=== PATIENT | female | born 1975 | race Two or more races ===

== ENCOUNTER 2020-11-01 21:59 | Inpatient (IN) | payer OTHER ==
[~2020-11-01] VITALS: Ht 154.9 cm; Wt 90.9 kg
[~2020-11-01 21:59] MED LIST: CEPH500C3 PO; DSS100 PO; FERR-89 PO; HYDR-4723 PO
[2020-11-01 22:27] LABS: BASOPHILS % (AUTO) 0.2 % (0.0-2.0); EOSINOPHILS % (AUTO) 0.6 % (1.0-6.0); HEMATOCRIT 25.6 % (36-46); HEMOGLOBIN 7.5 g/dL (12.0-16.0); LYMPHOCYTES # (AUTO) 2.8 K/uL (1.0-4.8); LYMPHOCYTES % (AUTO) 33.4 % (22.0-44.0); MEAN CORPUSCULAR HEMOGLOBIN 18.9 pg (26.0-34.0); MEAN CORPUSCULAR HGB CONC 29.3 G/dL (31.0-37.0); MEAN CORPUSCULAR VOLUME 65 fL (80-100); MONOCYTES # (AUTO) 0.7 K/uL (0.1-1.0); MONOCYTES % (AUTO) 8.3 % (2.0-9.0); NEUTROPHILS # (AUTO) 4.8 K/uL (1.8-7.7); NEUTROPHILS % (AUTO) 57.5 % (40.0-70.0); PLATELET COUNT (AUTO) 266 K/uL (150-450); RED BLOOD CELL COUNT(AUTO) 3.97 MIL/uL (4.00-5.20); RED CELL DISTRIBUTION WIDTH 17.9 % (11.5-14.5)
[2020-11-01 22:39] LABS: ANION GAP 7 mmol/L (8-16); CALCIUM, TOTAL 8.8 mg/dL (8.8-10.5); CARBON DIOXIDE 26 mmol/L (22-29); CHLORIDE 104 mmol/L (98-107); CREATININE 0.65 mg/dL (0.60-1.30); GLOMERULAR FILTR. RATE CALC > 60 mL/min (>60); POTASSIUM 3.6 mmol/L (3.5-5.1); SODIUM SERUM 137 mmol/L (136-145); UREA NITROGEN, BLOOD 12 mg/dL (7-18)
[2020-11-01 22:45] LABS: ALANINE AMINOTRANSFERASE 20 U/L (12-78); ALBUMIN 3.8 g/dL (3.4-5.0); ALKALINE PHOSPHATASE 71 U/L (46-116); ASPARTATE AMINOTRANSFERASE 13 U/L (15-37); BILIRUBIN,TOTAL 0.5 mg/dL (0.1-1.0); GLUCOSE,RANDOM 105 mg/dL (70-110); TOTAL PROTEIN, SERUM 7.2 g/dL (6.4-8.2)
[2020-11-01 22:50] LABS: B-TYPE NATRIURETIC PEPTIDE 110 pg/mL (0-100)
[2020-11-02] VITALS (13 sets, daily range): BP systolic 113–134; BP diastolic 60–90
[2020-11-02] MEDS ORDERED: ACETAMINOPHEN 325 MG TABLET PO PRN (01:45)
[2020-11-02] MEDS ORDERED: ONDANSETRON HCL 4 MG/2 ML VIAL IVP PRN (01:45)
[2020-11-02] MEDS ORDERED: 0.9% SODIUM CHLORIDE 10 ML SYRINGE IVP PRN (01:45)
[2020-11-02 09:37] LABS: COVID AG,FIA SOURCE NASOPHARYNGEAL
[2020-11-02] MEDS ORDERED: SODIUM CHLORIDE 0.9% 500 ML IV ONE (16:22)
[2020-11-03 00:26] VITALS: BP 123/67
[2020-11-03 04:05] VITALS: BP 129/67
[2020-11-03 06:13] LABS: BASOPHILS % (AUTO) 0.2 % (0.0-2.0); EOSINOPHILS % (AUTO) 0.7 % (1.0-6.0); HEMATOCRIT 30.4 % (36-46); HEMOGLOBIN 9.2 g/dL (12.0-16.0); LYMPHOCYTES # (AUTO) 1.7 K/uL (1.0-4.8); LYMPHOCYTES % (AUTO) 22.4 % (22.0-44.0); MEAN CORPUSCULAR HEMOGLOBIN 20.6 pg (26.0-34.0); MEAN CORPUSCULAR HGB CONC 30.2 G/dL (31.0-37.0); MEAN CORPUSCULAR VOLUME 68 fL (80-100); MONOCYTES # (AUTO) 0.6 K/uL (0.1-1.0); MONOCYTES % (AUTO) 8.6 % (2.0-9.0); NEUTROPHILS # (AUTO) 5.1 K/uL (1.8-7.7); NEUTROPHILS % (AUTO) 68.1 % (40.0-70.0); PLATELET COUNT (AUTO) 223 K/uL (150-450); RED BLOOD CELL COUNT(AUTO) 4.46 MIL/uL (4.00-5.20); RED CELL DISTRIBUTION WIDTH 21.4 % (11.5-14.5)
[2020-11-03 07:58] VITALS: BP 116/58
== END 2020-11-03 11:00 | disposition home or self-care (01) | DRG 663 ==
LOC: EMS 21:59 → 6N 11-02 10:59
PROVIDERS: ADMIT Internal Medicine; ATTEND Internal Medicine
PROC: 30233N1 Transfusion of Nonautologous Red Blood Cells into Peripheral Vein, Percutaneous Approach (ICD-10-PCS; principal; 2020-11-02)
DX: D50.9 Iron deficiency anemia, unspecified (principal); Z20.822 Contact with and (suspected) exposure to COVID-19
CPT/HCPCS: 80053; 83880; 84484; 85025; 86850; 86870; 86900; 86901; 86922; 93005; 99285; J7040; P9016

== ENCOUNTER 2021-08-19 12:28 | Emergency (ER) | payer OTHER ==
[~2021-08-19] VITALS: Ht 162.6 cm; Wt 100.0 kg
[2021-08-19] MEDS ORDERED: ACETAMINOPHEN 500 MG TABLET PO ONE (13:30)
[2021-08-19 13:44] LABS: BASOPHILS % (AUTO) 0.2 % (0.0-2.0); EOSINOPHILS % (AUTO) 0.7 % (1.0-6.0); HEMATOCRIT 29.6 % (36-46); HEMOGLOBIN 9.4 g/dL (12.0-16.0); LYMPHOCYTES # (AUTO) 1.9 K/uL (1.0-4.8); LYMPHOCYTES % (AUTO) 20.3 % (22.0-44.0); MEAN CORPUSCULAR HEMOGLOBIN 24.3 pg (26.0-34.0); MEAN CORPUSCULAR HGB CONC 31.7 G/dL (31.0-37.0); MEAN CORPUSCULAR VOLUME 76 fL (80-100); MONOCYTES # (AUTO) 0.8 K/uL (0.1-1.0); MONOCYTES % (AUTO) 8.6 % (2.0-9.0); NEUTROPHILS # (AUTO) 6.4 K/uL (1.8-7.7); NEUTROPHILS % (AUTO) 70.2 % (40.0-70.0); PLATELET COUNT (AUTO) 316 K/uL (150-450); RED BLOOD CELL COUNT(AUTO) 3.87 MIL/uL (4.00-5.20); RED CELL DISTRIBUTION WIDTH 16.4 % (11.5-14.5)
[2021-08-19 13:55] LABS: ANION GAP 10 mmol/L (8-16); CALCIUM, TOTAL 8.9 mg/dL (8.8-10.5); CARBON DIOXIDE 30 mmol/L (22-29); CHLORIDE 103 mmol/L (98-107); GLOMERULAR FILTR. RATE CALC > 60 mL/min (>60); GLUCOSE,RANDOM 84 mg/dL (70-110); POTASSIUM 4.2 mmol/L (3.5-5.1); SODIUM SERUM 143 mmol/L (136-145); UREA NITROGEN, BLOOD 10 mg/dL (7-18)
[2021-08-19 14:08] LABS: ALANINE AMINOTRANSFERASE 19 U/L (12-78); ALBUMIN 3.7 g/dL (3.4-5.0); ALKALINE PHOSPHATASE 81 U/L (46-116); ASPARTATE AMINOTRANSFERASE 14 U/L (15-37); BILIRUBIN,TOTAL 0.3 mg/dL (0.1-1.0); HCG,QUANTITATIVE < 1 mIU/mL (0-6); TOTAL PROTEIN, SERUM 7.2 g/dL (6.4-8.2)
[2021-08-19 14:44] VITALS: BP 132/71
[2021-08-19 15:21] LABS: APPEARANCE,URINE CLEAR (CLEAR); BILIRUBIN,URINE NEGATIVE (NEGATIVE); GLUCOSE, URINE (UA) NEGATIVE (NEGATIVE); KETONES,URINE NEGATIVE (NEGATIVE); LEUKOCYTE ESTERASE ,URINE NEGATIVE (NEGATIVE); NITRATE,URINE NEGATIVE (NEGATIVE); OCCULT BLOOD,URINE NEGATIVE (NEGATIVE); PROTEIN,URINE NEGATIVE (NEGATIVE); SPECIFIC GRAVITIY, URINE 1.018 (1.003-1.030); UROBILINOGEN,URINE <=1.0 mg/dL (<=1.0)
== END 2021-08-19 15:48 | disposition home or self-care (01) ==
LOC: EMS 12:28
DX: D25.9 Leiomyoma of uterus, unspecified (principal); D64.9 Anemia, unspecified; N83.202 Unspecified ovarian cyst, left side
CPT/HCPCS: 76830; 76856; 80053; 81003; 84702; 85025; 99284